=== PATIENT | female | born 1995 | race Caucasian/White ===

== ENCOUNTER 2021-01-13 12:45 | Emergency (ER) | payer SELFPAY ==
[~2021-01-13] VITALS: Ht 152.4 cm; Wt 52.2 kg
[2021-01-13 12:55] VITALS: BP 109/63
--- NOTE | 2021-01-13 13:30 | NUR ---
COVID SWAB DONE AND SENT TO THE LAB
--- NOTE | 2021-01-13 13:31 | NUR ---
Patient discharged to home in stable condition. Written and verbal after care instructions given. Patient verbalizes understanding of instruction. Pt ambulatory with a steady gait
--- NOTE | 2021-01-13 13:32 | NUR ---
MARQUES [phone]
== END 2021-01-13 13:32 | disposition home or self-care (01) ==
LOC: ER 12:52
DX: B34.9 Viral infection, unspecified (principal); Z20.822 Contact with and (suspected) exposure to COVID-19; E03.9 Hypothyroidism, unspecified
CPT/HCPCS: 87426; 99283; C9803